=== PATIENT | male | born 1995 | race African-American/Black ===

== ENCOUNTER 2017-03-05 13:19 | Emergency (ER) | payer OTHER ==
[~2017-03-05] VITALS: Ht 182.9 cm; Wt 86.6 kg
--- NOTE | ~2017-03-05 | CT2 ---
[facility] A Service of [facility] & [facility] RADIOLOGY TEXT RESULTS PATIENT: JOSE SHIELDS LOCATION: [facility] : [birth year] UNIT #: [id number] AGE: [address]: Grey Elias DO SEX: M ORDER DR: [id number] [facility] [address] [place], [place] [address] [id number] E MR#: [id number] Acc #: [id number] NAME: JOSE SHIELDS : 1995 SEX: M STUDY DATE/TIME: 03/05/2017 16:54 UNIT: [facility] ROOM: STUDY DESCRIPTION: CT Abd and Pelv W Cont Attending Physician: Grey Elias D.O. Ordering Physician: Grey Elias D.O. Primary Care Physician: Dante Lopez M.D. MEDICAL IMAGING REPORT This report is preliminary unless electronic signature is present EXAM CT scan of the abdomen and pelvis with contrast 03/05/2017 HISTORY Shortness of breath, abdominal pain, generalized weakness, nausea and vomiting beginning today. TECHNIQUE Spiral CT was performed through the abdomen and pelvis following intravenous contrast administration only as per clinician request. This CT examination was performed with one or more of the following radiation dose reduction techniques: automatic exposure control, adjustment of mA and/or kV according to patient size, and iterative reconstruction. FINDINGS The exam is severely limited by the lack of oral contrast. The liver, spleen, pancreas, gallbladder and biliary tree, adrenal glands and kidneys are normal. PELVIS: Evaluation of the gut is limited by the lack of oral contrast. No bowel obstruction is seen. There is no significant adenopathy. There is a small amount of free fluid in the pelvis. Question is raised of some thickening of the wall of the sigmoid colon and the descending colon. This is probably artifactual and related to under distension of the gastric lumen with lack of oral contrast. Clinical correlation is recommended. Small nodular infiltrate versus atelectasis posterior right lower lobe. IMPRESSION 1. The exam is limited by the lack of oral contrast. Question is raised of possible thickening of the wall of the descending colon and sigmoid colon. This may be artifactual and directly related to under STS. [facility] A Service of [facility] & [facility] RADIOLOGY TEXT RESULTS PATIENT: JOSE SHIELDS LOCATION: [facility] : [birth year] UNIT #: [id number] AGE: [address]: Grey Elias DO SEX: M ORDER DR: distension of the gastric lumen and lack of oral contrast. Clinical correlation is recommended to exclude inflammatory or infectious colitis. No bowel obstruction is seen. 2. Minimal nodular infiltrate versus atelectasis right lower lobe. Again clinical correlation recommended. Dictated by... Arslan Gamboa M.D. THIS IS AN ELECTRONICALLY VERIFIED REPORT Arslan Gamboa M.D. at 03/06/2017 2:18 PM HOLGER/gerber TD: 03/06/2017 05:59 JOB #: [id number] MEDICAL IMAGING REPORT Page 1 of 1 COPY
--- NOTE | ~2017-03-05 | CT16 ---
[facility] A Service of [facility] & [facility] RADIOLOGY TEXT RESULTS PATIENT: JOSE SHIELDS LOCATION: [facility] : [birth year] UNIT #: [id number] AGE: [address]: Grey Elias DO SEX: M ORDER DR: [id number] [facility] [address] [place], [place] [address] [id number] E MR#: [id number] Acc #: [id number] NAME: JOSE SHIELDS : 1995 SEX: M STUDY DATE/TIME: 03/05/2017 16:54 UNIT: [facility] ROOM: STUDY DESCRIPTION: CT Angio Chest for PE Attending Physician: Grey Elias D.O. Ordering Physician: Grey Elias D.O. Primary Care Physician: Dante Lopez M.D. MEDICAL IMAGING REPORT This report is preliminary unless electronic signature is present EXAM CT angiography chest for PE 03/05/2017. HISTORY Short of air, abdomen pain, weakness, nausea, vomiting times today. Rib pain. TECHNIQUE CT pulmonary angiography performed with intravenous administration 100 mL Isovue-370. Three-dimensional reconstructions performed through pulmonary arteries. This CT exam was performed with one or more of the following radiation dose reduction techniques: Automatic exposure control, adjustment of mA and/or kV according to patient size, and iterative reconstruction. COMPARISON No prior dedicated CTs of chest for comparison at this institution. Please see today's CT abdomen and pelvis for full discussion of findings below diaphragm. FINDINGS Thyroid unremarkable. No axillary adenopathy. Mild bilateral and symmetric gynecomastia. Residual thymic tissue anterior mediastinum. No mediastinal or hilar adenopathy. Heart is normal in size. No pleural effusions. Visualized portions of the liver, gallbladder, spleen, pancreas, adrenal glands, kidneys unremarkable. No upper abdominal adenopathy. Esophagus, visualized portions of stomach, small bowel, colon unremarkable. Lungs show a noncalcified nodule at the right lung base anteriorly in the middle lobe measuring 7-9 mm in diameter. At the right lung base posteriorly immediately adjacent to the diaphragm, there is a 9-19 mm noncalcified pulmonary nodule. The remainder of lungs are clear. STS. [facility] A Service of [facility] & [facility] RADIOLOGY TEXT RESULTS PATIENT: JOSE SHIELDS LOCATION: [facility] : [birth year] UNIT #: [id number] AGE: [address]: Grey Elias DO SEX: M ORDER DR: The pulmonary arteries are moderately well opacified. No PE. No evidence of aortic aneurysm or dissection. The visualized aortic branch vessels are patent. The bony structures are remarkable. IMPRESSION 1. No PE. No evidence of aortic aneurysm or dissection. 2. At the right lung base anteriorly adjacent to the diaphragm, there is a 7-9 mm noncalcified pulmonary nodule. In the right lung base posteriorly adjacent to the diaphragm, there is a 9-19 mm noncalcified nodule. These are indeterminate in appearance. Given the patient's very young age, a benign etiology is strongly favored. Given size of the nodules, consider followup CT in 3 months, or perhaps CT PET scan. I do not believe that these nodules are readily amenable to percutaneous sampling given their immediate proximity to the diaphragm. Correlation with any prior CT of chest would be useful if available. 3. Mild bilateral symmetric gynecomastia. Correlate with any risk factors. 4. The visualized upper abdomen shows no acute abnormality. Dictated by... Zach Moseley M.D. THIS IS AN ELECTRONICALLY VERIFIED REPORT Zach Moseley M.D. at 03/06/2017 6:04 PM Jenaro TD: 03/06/2017 06:12 JOB #: [id number] MEDICAL IMAGING REPORT Page 1 of 1 COPY
[2017-03-05 15:21] LABS: BASOPHIL% 0.7 % (0-2.5); EOSINOPHIL# 0.4 X10e3 (0-0.7); HEMATOCRIT 37.8 % (38.0-50.0); HEMOGLOBIN 12.6 gm/dL (13.0-16.0); LYMPHOCYTE# 1.3 X10e3 (1.0-3.5); LYMPHOCYTE% 20.3 % (17.0-45.0); MEAN CELL VOLUME 81.1 FL (83-96); MEAN CORPUSCULAR HEMOGLOBIN 27.1 PG (28-34); MEAN CORPUSCULAR HGB CONC 33.4 g/dL (30-36); MEAN PLATELET VOLUME 7.1 FL (6.5-11.5); MONOCYTE# 0.9 X10e3 (0-1.0); MONOCYTE% 14.1 % (3.0-12.0); NEUTROPHIL# 3.8 X10e3 (1.5-7.1); NEUTROPHIL% 58.9 % (40-75); PLATELET COUNT 373 X10e3 (140-420); RED BLOOD COUNT 4.66 X10e (3.90-5.60); RED CELL DISTRIBUTION WIDTH 13.7 % (11.0-15.5); WHITE BLOOD COUNT 6.4 X10e3 (4.0-10.5)
[2017-03-05 15:24] LABS: DIFF IND NO
[2017-03-05 15:41] LABS: ALBUMIN SERUM 3.5 g/dL (3.5-5.0); BILIRUBIN, DIRECT 0.1 mg/dL (0.0-0.2); BILIRUBIN,INDIRECT 0.5 mg/dL (0.0-0.9); BILIRUBIN,TOTAL 0.6 mg/dL (0.2-2.0); CALCIUM SERUM 8.7 mg/dL (8.4-10.2); CREATININE SERUM 1.2 mg/dL (0.6-1.4); GLOM FILT RATE Estimated 98.9 mL/min (>60); POTASSIUM 3.8 mmol/L (3.5-5.1); PROTEIN TOTAL SERUM 7.7 g/dL (6.0-8.3)
[2017-03-05 15:44] LABS: URINE SOURCE CLEAN CATCH
[2017-03-05 15:50] LABS: URINE APPEARANCE CLEAR; URINE BILIRUBIN NEG (NEG); URINE BLOOD NEG (NEG); URINE COLOR DK YELLOW; URINE GLUCOSE NEG (NEG); URINE KETONE 2+ (NEG); URINE LEUKOCYTE ESTERASE NEG (NEG); URINE NITRATE NEG (NEG); URINE PROTEIN TRACE (NEG); URINE SPECIFIC GRAVITY 1.032 (1.003-1.035)
[2017-03-05 15:55] LABS: CULTURE INDICATED? NO
== END 2017-03-05 19:33 | disposition home or self-care (01) ==
LOC: CED 13:19
PROVIDERS: Emergency Medicine
DX: K52.9 Noninfective gastroenteritis and colitis, unspecified (principal); R91.1 Solitary pulmonary nodule
CPT/HCPCS: 36415; 71275; 74177; 80048; 80076; 81003; 83690; 85025; 85379; 96360; 99285; Q9967